=== PATIENT | male | born 1990 | race Caucasian/White ===

== ENCOUNTER 2016-08-25 23:13 | Emergency (ER) | payer SELFPAY ==
[2016-08-25] MEDS ORDERED: PIPERACILLIN SODIUM/TAZOBACTAM 4.5 GM in 0.9 % SODIUM CHLORIDE 100ML 100 ML IVPB ONE (23:16)
[2016-08-25] MEDS ORDERED: HYDROMORPHONE HCL 1 MG/ML CPJ IVP ONE (23:16)
[2016-08-25] MEDS ORDERED: DIAZEPAM 5 MG/1 ML TUBX IVP ONE (23:16)
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
[2016-08-25] MEDS ORDERED: **ER** KETAMINE HCL 500MG/10ML VIAL IV ONE (23:36)
[2016-08-25] MEDS ORDERED: TETANUS AND DIPHTHERIA PF 0.5 ML SYR IM ONE (23:36)
[2016-08-25] MEDS ORDERED: ONDANSETRON HCL IV 4 MG/2 ML VIAL IVP ONE (23:36)
[2016-08-25] MEDS ORDERED: FENTANYL PF 100MCG/2ML VIAL IVP ONE ×3 (23:36→23:47)
[2016-08-26] MEDS ORDERED: MIDAZOLAM HCL 2MG/2ML VIAL IV ONE (00:04)
[2016-08-26 00:46] LABS: ALB/GLOB RATIO 1.4 (1.1-1.8); ALKALINE PHOSPHATASE 87 U/L (38-126); ANION GAP 19.2 (7-16); AST/SGOT 33 U/L (17-59); BILIRUBIN,TOTAL 0.91 mg/dL (0.2-1.3); BLOOD UREA NITROGEN 15 mg/dL (9-20); CARBON DIOXIDE 16.8 mmol/L (22-30); EST GLOMERULAR FILTRATION RATE > 60 ml/min; GLUCOSE,RANDOM 92 mg/dL (70-110); HEMATOCRIT 43.4 % (42.0-52.0); HEMOGLOBIN 14.9 gm/dl (14.0-18.0); MEAN CELL VOLUME 85.3 fl (81-97); MEAN CORPUSCULAR HEMOGLOBIN 29.3 pg (27-33); MEAN CORPUSCULAR HGB CONC 34.3 g/dl (32-36); MEAN PLATELET VOLUME 10.5 fl (7.4-10.4); PLATELET COUNT 354 K/uL (130-400); RED BLOOD COUNT 5.09 M/uL (4.40-5.70); RED CELL DISTRIBUTION WIDTH 12.8 % (11.5-14.5); TOTAL PROTEIN 8.6 gm/dL (6.3-8.2); WHITE BLOOD COUNT W/O DIFF 19.9 K/uL (4.2-12.2)
[2016-08-26 01:31] LABS: ALT/SGPT 26 U/L (21-72)
[2016-08-26 05:24] LABS: ABO GROUP O; ANTIBODY SCREEN NEGATIVE (NEGATIVE); RH TYPE NEGATIVE
[2016-08-26] MEDS ORDERED: Diph,Pert(Acell),Tet Vac 0.5 ML SYR IM ONE (06:04)
--- NOTE | 2016-08-26 16:29 | RADIOLOGY REPORT ---
EXAM: HAND, RIGHT 3 VIEWS HISTORY: TRAUMA. TECHNIQUE: A single portable AP view of the right hand was performed. FINDINGS: There are fracture dislocations of all digits. There is soft tissue swelling. IMPRESSION: FRACTURE DISLOCATION OF ALL DIGITS. A SINGLE AP VIEW OF THE HAND WAS PERFORMED LIMITING EVALUATION. J[facility] NUMBER: [id number] [facility]
== END 2016-08-26 00:17 | disposition short-term general hospital (02) ==
LOC: ER 23:13
DX: S62.91XB Unspecified fracture of right hand, initial encounter for open fracture (principal); W39.XXXA Discharge of firework, initial encounter; Y92.007 Garden or yard of unspecified non-institutional (private) residence as the place of occurrence of the external cause
CPT/HCPCS: 99291 ×2; 96372; 96365; 96366; 96375; 96368; 80053; 85027; 86900; 86901; 86850; 73120; J2405; J3010; J1170; 90715; J2543; J3360